=== PATIENT | male | born 1980 | race Caucasian/White ===

== ENCOUNTER → 2016-03-18 | Outpatient (CLI) | payer BC | LOC: COL.RAD 15:27 | DX: R07.89 Other chest pain (principal); R05 Cough | CPT/HCPCS: Q9967 ==

== ENCOUNTER → 2016-07-14 | Outpatient (CLI) | payer BC | LOC: MHCPAIN 09:57 | DX: G89.29 Other chronic pain (principal); M47.22 Other spondylosis with radiculopathy, cervical region; M48.02 Spinal stenosis, cervical region | CPT/HCPCS: G0463 ==

== ENCOUNTER → 2016-07-22 | Outpatient (CLI) | payer BC | LOC: MHCPAIN 07:39 | DX: M50.93 Cervical disc disorder, unspecified, cervicothoracic region (principal) | CPT/HCPCS: J1100; Q9967 ==

== ENCOUNTER → 2016-08-25 | Outpatient (CLI) | payer BC | LOC: MHCPAIN 10:14 | DX: G89.29 Other chronic pain (principal); M50.90 Cervical disc disorder, unspecified, unspecified cervical region; M54.12 Radiculopathy, cervical region | CPT/HCPCS: G0463 ==

== ENCOUNTER → 2016-09-02 | Outpatient (CLI) | payer BC | LOC: MHCPAIN 07:19 | DX: M50.90 Cervical disc disorder, unspecified, unspecified cervical region (principal) | CPT/HCPCS: J1100; Q9967 ==

== ENCOUNTER → 2016-11-02 | Outpatient (CLI) | payer BC | LOC: MHCPAIN 08:32 | DX: G89.29 Other chronic pain (principal); M50.10 Cervical disc disorder with radiculopathy, unspecified cervical region; M48.02 Spinal stenosis, cervical region; Z87.891 Personal history of nicotine dependence | CPT/HCPCS: G0463 ==

== ENCOUNTER → 2017-02-09 | Outpatient (CLI) | payer BC | LOC: MHCPAIN 10:17 | DX: G89.29 Other chronic pain (principal); M50.11 Cervical disc disorder with radiculopathy, high cervical region; M25.20 Flail joint, unspecified joint; Z87.891 Personal history of nicotine dependence | CPT/HCPCS: G0463 ==

== ENCOUNTER → 2017-05-04 | Outpatient (CLI) | payer BC | LOC: MHCPAIN 10:34 | DX: G89.29 Other chronic pain (principal); M50.90 Cervical disc disorder, unspecified, unspecified cervical region; M54.12 Radiculopathy, cervical region; R51 Headache | CPT/HCPCS: G0463 ==